=== PATIENT | female | born 2000 | race Caucasian/White ===

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

== ENCOUNTER → 2023-01-04 | Outpatient (REF) | payer OTHER, MEDICAID ==
[~2023-01-04] MED LIST changes: -OMEP-221; +OMEP40CA5
== END ==
LOC: M SFHCDERM 14:21
PROVIDERS: ATTEND Physician Assistant
DX: I78.1 Nevus, non-neoplastic (principal)